=== PATIENT | female | born 1950 | race Caucasian/White ===

== ENCOUNTER → 2017-07-06 | Outpatient (CLI) | payer MEDICARE, OTHER ==
[~2017-07-06] MED LIST: ASPI81CH; ATEN50 PO; ATOR10 PO; BUDE200IP IH; BUSP5 PO; CALCAVITD PO; CRUTCHES; ESTMED; FISH1000 PO; HYDACE10B PO; LORA10 PO; MAXIDE; METCELP; METRIBP PO; MOMENI; MOVEFREE PO; NEXIUM PO; TOCO1000; TRIHYD PO; VALD20 PO; Ventolin/Prove6.7 GM INH; [UNRECOGNIZED DRUG - OTHER]
== END | disposition home or self-care (01) ==
LOC: PLD 09:13 → LAB SHORT 09:13
DX: L98.499 Non-pressure chronic ulcer of skin of other sites with unspecified severity (principal)
CPT/HCPCS: 88305; 88312

== ENCOUNTER 2021-10-16 09:22 | Day surgery (SDC) | payer MEDICARE ==
[~2021-10-16] VITALS: Ht 154.9 cm; Wt 95.1 kg
[2021-10-16] MEDS ORDERED: OMEP20ER PO (10:14)
[2021-10-16] MEDS ORDERED: DYAZIDE 37.5-21 EACH PO (10:18)
[2021-10-16] MEDS ORDERED: CLOBETASOL EMOL15 G1 (10:21)
[2021-10-16] MEDS ORDERED: HYDROCORTISONE30 GM TOP (10:23)
[2021-10-16] MEDS ORDERED: TRIDERM28.4 GM (10:24)
[2021-10-16] MEDS ORDERED: BETA.05TCA (10:24)
== END 2021-10-16 11:22 | disposition home or self-care (01) ==
LOC: ORSCSDS 09:22
PROVIDERS: Internal Medicine Gastroenterology
PROC: 0DJD8ZZ Inspection of Lower Intestinal Tract, Via Natural or Artificial Opening Endoscopic (ICD-10-PCS; principal; 2021-10-16 10:45)
DX: Z12.11 Encounter for screening for malignant neoplasm of colon (principal); Z86.010 Personal history of colon polyps; Z80.0 Family history of malignant neoplasm of digestive organs; K57.30 Diverticulosis of large intestine without perforation or abscess without bleeding; I10 Essential (primary) hypertension; J45.909 Unspecified asthma, uncomplicated; Z87.891 Personal history of nicotine dependence; E66.9 Obesity, unspecified; Z68.39 Body mass index [BMI] 39.0-39.9, adult; Z79.82 Long term (current) use of aspirin; Z79.899 Other long term (current) drug therapy
CPT/HCPCS: J2704; J7120